=== PATIENT | male | born 1990 | race Caucasian/White ===

== ENCOUNTER 2016-02-29 12:05 | Emergency (ER) | payer MEDICARE, OTHER ==
[~2016-02-29] VITALS: Ht 180.3 cm; Wt 140.0 kg
[~2016-02-29 12:05] MED LIST: ALBU18HF INHALATION; AZIT250T94 PO; BENZ100C70 PO; GLIM4TAB55 PO; LISI2.5T59 PO; RTPRO5; SAME MEDS; denies new meds/allergies
[2016-02-29 12:11] VITALS: Ht 180.3 cm; Wt 140.0 kg
[2016-02-29] MEDS ORDERED: AMOX1TAB10 PO (14:39)
[2016-02-29] MEDS ORDERED: FLUT9.9S NASAL (14:39)
[2016-02-29] MEDS ORDERED: BENZ100C70 PO (14:39)
[2016-02-29] MEDS ORDERED: ACET325T33 PO (14:39)
[2016-02-29] MEDS ORDERED: ALBU18HF INHALATION (14:39)
[2016-02-29] MEDS ORDERED: BENZ1LOZ57 MM (14:39)
--- NOTE | 2016-02-29 14:51 | ERD ---
ER Documentation Chief Complaint Date/Time DATE: 02/29/16 TIME: 14:42 Chief Complaint flu symptoms with cough and congestion HPI The patient is a 25-year-old male with past medical history of obstructive sleep apnea, HTN, and asthma here with 2 days of itchy nose, mildly productive cough of green sputum, body aches, and wheezing. He denies difficulty breathing, shortness of breath, chest pain, fever, chills, nausea, vomiting, diarrhea, or any other symptoms or concerns at this time. He has tried Tylenol at home for body aches with some relief. ROS All systems reviewed and are negative except as per history of present illness. Medications Home Meds Active Scripts Fluticasone Propionate (Flonase Allergy Relief) 9.9 Ml [place].susp, 1 SPRAY NASAL DAILY, #1 BOTTLE TO EACH NOSTRIL Prov:ALYSHA BRAXTON, KATRINA 02/29/16 Acetaminophen* (Tylenol*) 325 Mg Tablet, 2 TAB PO Q6 Y for PAIN AND OR ELEVATED TEMP, #20 TAB Prov:ALYSHA BRAXTON NP 02/29/16 Benzonatate* (Tessalon Perle*) 100 Mg Capsule, 100 MG PO Q8H Y for COUGH for 7 Days, CAP Prov:ALYSHA BRAXTON NP 02/29/16 Benzocaine/Menthol (Chloraseptic Sore Throat Lozng) 1 Each Lozenge, 1 EACH MM 2 HOURS AFTER MEALS for 5 Days, LOZENGE Prov:ALYSHA BRAXTON NP 02/29/16 Albuterol Sulfate* (Ventolin HFA*) 18 Gm Hfa.aer.ad, 2 PUFF INHALATION Q6H, #1 INHALER Prov:ALYSHA BRAXTON NP 02/29/16 Amoxicillin/Potassium Clav (Amox-Clav 875-125 mg Tablet) 875-125 mg Tab, 1 TAB PO BID for 7 Days, #14 TAB Prov:ALYSHA BRAXTON NP 02/29/16 Benzonatate* (Tessalon Perle*) 100 Mg Capsule, 100 MG PO Q8H Y for COUGH, #30 CAP Prov:LONDON BARRAZA MD 12/14/15 Albuterol Sulfate* (Ventolin HFA*) 18 Gm Hfa.aer.ad, 2 PUFF INHALATION Q4H, #1 INHALER Prov:LONDON BARRAZA MD 12/14/15 Azithromycin* (Zithromax*) 250 Mg Tablet, 250 MG PO .EDY DIRECTED, #6 TAB TAKE 500 MG (2 TABS) THE FIRST DAY THEN 250 MG (1 TAB) DAYS 2-5 Prov:LONDON BARRAZA MD 12/14/15 Reported Medications [denies new meds/allergies] No Conflict Check 12/08/12 [Same Meds] No Conflict Check 01/30/12 Glimepiride* (Amaryl*) 4 Mg Tablet, 4 MG PO BID 04/13/11 Lisinopril* (Lisinopril*) 2.5 Mg Tablet, 20 MG PO DAILY, 0 Refills 11/04/09 Albuterol Sulfate* (Proventil* Neb) 0.5 Ml Nebu 11/04/09 Allergies Allergies: Coded Allergies: No Known Allergy (Unverified , 12/14/15) PMhx/Soc History of Surgery: Yes (tonsillectomy) Anesthesia Reaction: No Hx Neurological Disorder: No Hx Respiratory Disorders: No Hx Cardiac Disorders: Yes (htn) Hx Psychiatric Problems: Yes (anxiety) Hx Miscellaneous Medical Probl: No Hx Alcohol Use: Yes Hx Substance Use: No Hx Tobacco Use: Yes (5) Smoking Status: Current every day smoker Physical Exam Vitals Vital Signs Date Time Temp Pulse Resp B/P Pulse Ox O2 Delivery O2 Flow Rate FiO2 02/29/16 12:11 97.8 86 20 165/86 100 Physical Exam INITIAL VITAL SIGNS: Reviewed by me, afebrile, no tachycardia, oximetry 100% on room air, no tachypnea GENERAL: Alert. Well developed and well nourished. No acute distress. Nontoxic -appearing. HEAD: Head is normocephalic. Atraumatic. Right ethmoid sinus tenderness to palpation. EYES: EOMI. PERRL. No scleral icterus. No conjunctival injection. No clear or purulent drainage. ENT: External ears, nose, and mouth normal. Ear canals clear and without erythema or purulence. Tympanic membranes normal, positive light reflex, no erythema, no bulging, no effusion. Nares patent and without rhinorrhea. Oropharynx is clear and without erythema or exudates. Tonsils are +2 and without erythema or exudates. Uvula midline. Airway patent. Moist mucous membranes. NECK: Supple. Full range of motion. Trachea midline. No meningismus. No lymphadenopathy. RESPIRATORY: No tachypnea. Clear to auscultation bilaterally. No wheezing, rales , or rhonchi. CV: Regular rate and rhythm. No murmurs, rubs, or gallops ABDOMEN: Soft, non-distended, non-tender. Bowel sounds normal in all quadrants. BACK: No CVA tenderness. Full ROM. EXTREMITIES: No obvious deformity. No clubbing or cyanosis. No edema. SKIN: Warm and dry. No diaphoresis. No obvious rashes or lesions. NEUROLOGIC: Alert and oriented x 3. Appropriate. Face is symmetric. Speech is normal. Moves all extremities equally. Procedures/MDM Nursing Notes Reviewed Previous Medical Records requested via [employer]. EMERGENCY DEPARTMENT COURSE / MEDICAL DECISION MAKING: The patient comes to the ED secondary to itchy nose, mildly productive cough of green sputum, body aches, and wheezing 2 days. Differential diagnosis upon initial evaluation includes but is not limited to: Asthma exacerbation, pneumonia, sepsis, meningitis, sinusitis, allergies, and others. Final impression: Sinusitis URI Based on patient's history of present illness and physical examination the decision was made to discharge. There is no evidence of life threatening injuries or illnesses at this time. At this time, the patient's history of present illness and physical exam are most consistent with right ethmoid sinusitis and URI, likely viral. He had tenderness of the right ethmoid sinus to palpation. He had increased headache and sinus pressure when he bent forward at the waist and hung his head down. At this time I believe he is an appropriate candidate for outpatient management and follow-up as he is afebrile , with a benign physical exam, clear lung sounds, no wheezes, no rhonchi, no stridor, oximetry 100% on room air, no tachypnea, and is generally well- appearing and nontoxic. Given this, I doubt any serious cause of infection including, but not limited to pneumonia, sepsis, or meningitis. There were no wheezes on physical exam and the patient did not have any shortness of breath or difficulty breathing. Given this I have a low suspicion for an asthma exacerbation at this time. The patient will be prescribed Ventolin for home, as he states that he has run out of this medication. On re-examination, patient resting in no distress, stable vital signs, reports feeling safe for discharge with outpatient follow up with PMD in 2-3 days. Patient given return precautions. Patient verbalized understanding and agreed to return precautions. All of his questions and concerns were addressed prior to discharge. He was instructed to get plenty of fluids and plenty of rest. He agrees with the plan of care. Patient's blood pressure was elevated but appears stable without evidence of hypertensive emergency, end organ damage, chest pain or shortness of breath. The patient was counseled about the risks of untreated hypertension and urged to pursue outpatient monitoring and therapy in 2-3 days with their primary care physician. The patient is on hypertensive medications, and did not take them this morning as he was in a [place] to come here. He states that he usually takes his medications as prescribed. He has outpatient follow-up for hypertension management. Prescriptions Augmentin Ventolin Chloraseptic lozenges Tessalon Perles Tylenol Flonase Departure Diagnosis: Primary Impression: Sinusitis, acute ethmoidal Recurrence: non-recurrent Qualified Code: J01.20 - Acute non-recurrent ethmoidal sinusitis Additional Impression: Upper respiratory infection URI type: unspecified viral URI Qualified Code: J06.9 - Viral upper respiratory tract infection Condition: Stable Patient Instructions: Sinusitis, Abx Tx Referrals: your doctor Additional Instructions: Call your primary care doctor TOMORROW for an appointment during the next 2-3 days. See the doctor sooner or return here if your condition worsens before your appointment time. ALYSHA BRAXTON NP Feb 29, 2016 14:51
== END 2016-02-29 15:12 | disposition home or self-care (01) ==
LOC: FTE 12:05
DX: J01.20 Acute ethmoidal sinusitis, unspecified (principal); J06.9 Acute upper respiratory infection, unspecified; I10 Essential (primary) hypertension; F17.210 Nicotine dependence, cigarettes, uncomplicated; J45.909 Unspecified asthma, uncomplicated; E11.9 Type 2 diabetes mellitus without complications; Z79.84 Long term (current) use of oral hypoglycemic drugs
CPT/HCPCS: 99284

== ENCOUNTER 2016-06-23 16:00 | Emergency (ER) | payer MEDICARE, OTHER ==
[~2016-06-23] VITALS: Ht 180.3 cm; Wt 140.5 kg
[~2016-06-23 16:00] MED LIST changes: +ACET325T33 PO; +AMOX1TAB10 PO; +BENZ1LOZ57 MM; +FLUT9.9S NASAL
[2016-06-23 16:04] VITALS: Ht 180.3 cm; Wt 140.5 kg
[2016-06-23] MEDS ORDERED: IBUPROFEN 600 MG TAB PO ONE (16:30)
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
--- NOTE | 2016-06-23 17:08 | RADRPT ---
PROCEDURE: XR Pelvis CLINICAL INDICATION: Left-sided pain TECHNIQUE: An AP radiograph was submitted. COMPARISON: None FINDINGS: Osseous structures: There is a asymmetrical lumbarization of S1 as well as a spina bifida occulta. The osseous elements otherwise appear intact. Joint spaces: The hip joints appear unremarkable. There is no distension of either joint capsule. the sacroiliac joints appear unremarkable without significant erosions or sclerosis. Soft tissues: A phlebolith is seen in the left pelvis. IMPRESSION: 1. Asymmetrical lumbarization of S1 with a spina bifida a occulta. 2. Otherwise, unremarkable AP pelvis. Physician Yoli Date Time Electronically viewed and signed by Physician Yoli on 06/23/2016 17:08 /
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
[2016-06-23] MEDS ORDERED: IBUP-1542 PO (17:29)
== END 2016-06-23 17:35 | disposition home or self-care (01) ==
LOC: FTE 16:00
DX: S39.012A Strain of muscle, fascia and tendon of lower back, initial encounter (principal); I10 Essential (primary) hypertension; F17.210 Nicotine dependence, cigarettes, uncomplicated; V89.2XXA Person injured in unspecified motor-vehicle accident, traffic, initial encounter
CPT/HCPCS: 72100; 72170

== ENCOUNTER 2016-11-29 14:10 | Emergency (ER) | payer MEDICARE, OTHER ==
[~2016-11-29] VITALS: Ht 180.3 cm; Wt 141.0 kg
[~2016-11-29 14:10] MED LIST changes: +IBUP-1542 PO
[2016-11-29 14:18] VITALS: Ht 180.3 cm; Wt 141.0 kg
[2016-11-29] MEDS ORDERED: AZIT250T94 PO (14:56)
[2016-11-29] MEDS ORDERED: IBUP800T25 PO (14:56)
--- NOTE | 2016-11-29 15:02 | ERD ---
ER Documentation Chief Complaint Chief Complaint SORE THROAT W/ CONGESTION X 2 DAYS HPI 26-year-old male presents with sore throat and cough that he has had for 2 days. He has not yet had a fever he states. No nausea or vomiting. He also has bilateral ear pain. He has tried uric-ire-tnkxopn medications but that does not help. Cough is dry and worse at night. ROS All systems reviewed and are negative except as per history of present illness. Medications Home Meds Active Scripts Ibuprofen* (Motrin*) 800 Mg Tab, 800 MG PO Q6, #30 TAB Prov:KIAN OLSEN PA-C 11/29/16 Azithromycin* (Zithromax*) 250 Mg Tablet, 250 MG PO .ZPACK DIRECTED, #6 TAB TAKE 500 MG (2 TABS) THE FIRST DAY THEN 250 MG (1 TAB) DAYS 2-5 Prov:KIAN OLSEN PA-C 11/29/16 Ibuprofen* (Motrin*) 600 Mg Tab, 600 MG PO Q6, #30 TAB Prov:ROSELYN SHAW PA-C 06/23/16 Fluticasone Propionate (Flonase Allergy Relief) 9.9 Ml [place].susp, 1 SPRAY NASAL DAILY, #1 BOTTLE TO EACH NOSTRIL Prov:ALYSHA BRAXTON NP 02/29/16 Acetaminophen* (Tylenol*) 325 Mg Tablet, 2 TAB PO Q6 Y for PAIN AND OR ELEVATED TEMP, #20 TAB Prov:ALYSHA BRAXTON, KATRINA 02/29/16 Benzonatate* (Tessalon Perle*) 100 Mg Capsule, 100 MG PO Q8H Y for COUGH for 7 Days, CAP Prov:ALYSHA BRAXTON NP 02/29/16 Benzocaine/Menthol (Chloraseptic Sore Throat Lozng) 1 Each Lozenge, 1 EACH MM 2 HOURS AFTER MEALS for 5 Days, LOZENGE Prov:ALYSHA BRAXTON NP 02/29/16 Albuterol Sulfate* (Ventolin HFA*) 18 Gm Hfa.aer.ad, 2 PUFF INHALATION Q6H, #1 INHALER Prov:ALYSHA BRAXTON, KATRINA 02/29/16 Amoxicillin/Potassium Clav (Amox-Clav 875-125 mg Tablet) 875-125 mg Tab, 1 TAB PO BID for 7 Days, #14 TAB Prov:ALYSHA BRAXTON, [employer] WORK[employer] 02/29/16 Benzonatate* (Tessalon Perle*) 100 Mg Capsule, 100 MG PO Q8H Y for COUGH, #30 CAP Prov:LONDON BARRAZA MD 12/14/15 Albuterol Sulfate* (Ventolin HFA*) 18 Gm Hfa.aer.ad, 2 PUFF INHALATION Q4H, #1 INHALER Prov:LONDON BARRAZA MD 12/14/15 Azithromycin* (Zithromax*) 250 Mg Tablet, 250 MG PO .ZPACK DIRECTED, #6 TAB TAKE 500 MG (2 TABS) THE FIRST DAY THEN 250 MG (1 TAB) DAYS 2-5 Prov:LONDON BARRAZA MD 12/14/15 Reported Medications [denies new meds/allergies] No Conflict Check 12/08/12 [Same Meds] No Conflict Check 01/30/12 Glimepiride* (Amaryl*) 4 Mg Tablet, 4 MG PO BID 04/13/11 Lisinopril* (Lisinopril*) 2.5 Mg Tablet, 20 MG PO DAILY, 0 Refills 11/04/09 Albuterol Sulfate* (Proventil* Neb) 0.5 Ml Nebu 11/04/09 Allergies Allergies: Coded Allergies: No Known Allergy (Unverified , 11/29/16) PMhx/Soc History of Surgery: Yes (tonsillectomy) Anesthesia Reaction: No Hx Neurological Disorder: No Hx Respiratory Disorders: No Hx Cardiac Disorders: Yes (htn) Hx Psychiatric Problems: Yes (anxiety) Hx Miscellaneous Medical Probl: No Hx Alcohol Use: Yes Hx Substance Use: No (marijuana) Hx Tobacco Use: Yes (5) Smoking Status: Former smoker FmHx Family History: No diabetes Physical Exam Vitals Vital Signs Date Time Temp Pulse Resp B/P Pulse Ox O2 Delivery O2 Flow Rate FiO2 11/29/16 14:18 98.7 83 18 176/87 98 Physical Exam INITIAL VITAL SIGNS: Reviewed by me GENERAL: Awake, alert and oriented x 4, well appearing, nontoxic, speaking in full sentences. No acute distress HEAD: Atraumatic NECK: Supple. No masses. Full range of motion. No meningismus. No midline tenderness. EYES: EOMI. PERRL. EAR: No tenderness over the mastoids bilaterally. No exudates in the canals. TMs nonerythematous. NOSE: Normal nose. THROAT: No tonilar erythema or edema. No exudates. Uvula midline. No kissing tonsils. RESPIRATORY: Clear to auscultation bilaterally. Symmetric chest wall rise. No wheezing or rales. No accessory muscle use. CV: Regular rate and rhythm. No murmurs, rubs, or gallops. ABDOMEN: Soft, non-distended. Nontender. Negative Irwin. Negative McBurneys point tenderness. No CVA tenderness bilaterally. No guarding. No rebound. Procedures/MDM Patient presents with URI versus bronchitis. Patient's blood pressure was elevated (>120/80) but appears stable without evidence of hypertension emergency or urgency. The patient was counseled about the risks of hypertension and urged to pursue outpatient monitoring and therapy within a week with their primary care physician. Discharge with improvement and azithromycin. Patient counseled regarding my diagnostic impression and care plan. Prior to discharge all questions answered. Pt agrees with treatment plan and understands strict return precautions. Pt is instructed to follow up with primary care provider within 24-48 hours. Precautionary instructions provided including instructions to return to the ER if not improving or for any worsening or changing symptoms or concerns. Departure Diagnosis: Primary Impression: Bronchitis Condition: Stable Patient Instructions: Bronchitis, Antiobiotic Treatment (Adult) Additional Instructions: Call your primary care doctor TOMORROW for an appointment during the next 1-2 days.See the doctor sooner or return here if your condition worsens before your appointment time. KIAN OLSEN PA-C Nov 29, 2016 15:02
== END 2016-11-29 15:04 | disposition home or self-care (01) ==
LOC: FTE 14:10
DX: J20.9 Acute bronchitis, unspecified (principal); I10 Essential (primary) hypertension; Z79.84 Long term (current) use of oral hypoglycemic drugs; Z87.891 Personal history of nicotine dependence
CPT/HCPCS: 99283

== ENCOUNTER 2016-12-03 10:48 | Emergency (ER) | payer MEDICARE, OTHER ==
[~2016-12-03] VITALS: Ht 180.3 cm; Wt 140.0 kg
[~2016-12-03 10:48] MED LIST changes: +IBUP800T25 PO
[2016-12-03 10:51] VITALS: Ht 180.3 cm; Wt 140.0 kg
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
[2016-12-03] MEDS ORDERED: CYCL-319 PO (12:11)
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
== END 2016-12-03 12:33 | disposition home or self-care (01) ==
LOC: FTE 10:48
DX: M62.830 Muscle spasm of back (principal); I10 Essential (primary) hypertension; F17.210 Nicotine dependence, cigarettes, uncomplicated; Z79.84 Long term (current) use of oral hypoglycemic drugs
CPT/HCPCS: 72100

== ENCOUNTER 2017-05-28 22:47 | Emergency (ER) | END 2017-05-29 01:40 | disposition home or self-care (01) ==

== ENCOUNTER 2017-08-19 18:36 | Emergency (ER) | END 2017-08-19 21:10 | disposition home or self-care (01) ==

== ENCOUNTER 2018-01-02 11:44 | Emergency (ER) | END 2018-01-02 18:30 | disposition home or self-care (01) ==

== ENCOUNTER 2018-05-02 20:42 | Emergency (ER) | payer MEDICARE, OTHER ==
[~2018-05-02] VITALS: Ht 180.3 cm; Wt 133.0 kg
[~2018-05-02 20:42] MED LIST changes: -ACET325T33 PO; -ALBU18HF INHALATION; -AMOX1TAB10 PO; -AZIT250T94 PO; -BENZ100C70 PO; -BENZ1LOZ57 MM; -FLUT9.9S NASAL; -GLIM4TAB55 PO; -IBUP-1542 PO; -IBUP800T25 PO; -LISI2.5T59 PO; +LORA-441 PO; -RTPRO5; -SAME MEDS; -denies new meds/allergies
[2018-05-02 21:00] VITALS: Ht 180.3 cm; Wt 133.0 kg
--- NOTE | 2018-05-03 03:10 | ERD ---
ER Documentation Chief Complaint Chief Complaint fever/cough/runny nose x 3 days HPI This is a 27-year-old male presents emergency department with complaints of sinus congestion, fever, cough for about 3 days. Denies headache, head injury, loss of consciousness, dizziness, neck pain, neck stiffness, throat pain, difficulty swallowing, difficulty breathing lying flat, shoulder pain, chest pain, back pain, abdominal pain, nausea, vomiting, co nstipation, diarrhea, urinary symptoms, loss of bowel and bladder control, trauma, injury, falls, difficulty walking due to pain, numbness or tingling sensation, calf pain, recent travel, recent major surgery in the last 3 weeks, calf pain, recent long travel, recent exposure to any illness, recent antibiotic use in the last 3 months, chills, seizures. Past medical history: Surgical history: Tonsillectomy. Social: Denies smoking, use of alcoholic beverages, use of illegal drugs. ROS All systems reviewed and are negative except as per history of present illness. Medications Home Meds Active Scripts Mometasone Furoate* (Nasonex*) 50 Mcg/[place] - 17 Gm [place].pump, 1 SPRAY NASAL DAILY, #1 BOTTLE TO EACH NOSTRIL Prov:PASILAPATRICIA MARTIN Darnell 05/03/18 Benzonatate* (Tessalon Perle*) 100 Mg Capsule, 100 MG PO Q8H PRN for COUGH, #15 CAP Prov:PASILABANPATRICIA Darnell 05/03/18 Oseltamivir Phosphate* (Tamiflu*) 75 Mg Capsule, 75 MG PO BID for 5 Days, CAP Prov:PASILAPATRICIA MARTIN Darnell 05/03/18 Loratadine* (Loratadine*) 10 Mg Tablet, 10 MG PO DAILY, #30 TAB Prov:PASILAPATRICIA MARTIN Darnell 05/03/18 Ibuprofen* (Motrin*) 800 Mg Tab, 800 MG PO Q6H PRN for PAIN AND OR ELEVATED TEMP, #30 TAB Prov:PASILABANPATRICIA Darnell 05/03/18 Amoxicillin/Potassium Clav (Amox-Clav 875-125 mg Tablet) 875-125 mg Tab, 1 TAB PO BID for 10 Days, #20 TAB Prov:PASILAPATRICIA MARTIN Darnell 05/03/18 Lorazepam* (Ativan*) 0.5 Mg Tablet, 0.5 MG PO Q8H PRN for ANXIETY, #8 TAB Prov:ALEX,NETTA B. MD 01/02/18 Allergies Allergies: Coded Allergies: No Known Allergy (Unverified , 01/02/18) PMhx/Soc History of Surgery: Yes (tonsillectomy) Anesthesia Reaction: No Hx Neurological Disorder: No Hx Respiratory Disorders: No Hx Cardiac Disorders: Yes (HTN) Hx Psychiatric Problems: Yes (anxiety) Hx Miscellaneous Medical Probl: No Hx Alcohol Use: No Hx Substance Use: No Hx Tobacco Use: No Physical Exam Vitals Physical Exam Const: No acute distress Head: Atraumatic Eyes: Normal Conjunctiva ENT: Normal External Ears, Nose and Mouth. Right ear: TM is erythematous. No lesions no discharge. No hearing loss. No mastoid tenderness. Left ear: TMs are erythematous. No bleeding. No discharge. No hearing loss. No mastoid tenderness. Nose: There is frontal/ethmoid/maxillary sinus tenderness palpation. Throat: Uvula is midline and nondisplaced. Tolerating secretions. Patent airway. Neck: Full range of motion. No meningismus. No nuchal rigidity with no signs of meningeal irritation. Resp: Clear to auscultation bilaterally. No accessory muscle use in breathing. Cardio: Regular rate and rhythm, no murmurs Abd: Soft, non tender, non distended. Normal bowel sounds Skin: No petechiae or rashes Back: No midline or flank tenderness Ext: No cyanosis, or edema Neur: Awake and alert. No neurological deficit. Psych: Normal Mood and Affect Results 24 hrs Current Medications Medications Dose Sig/Nirmala Start Time Status Last (Trade) Ordered Route PRN Stop Time Admin Dose Reason Admin Ibuprofen 800 mg ONCE ONCE 05/03/18 DC 05/03/18 (Motrin) PO 03:30 04:10 05/03/18 03:31 10 ml ONCE ONCE 05/03/18 DC Guaifenesin/ PO 03:30 Dextromethorp 05/03/18 03:59 noble (Robitussin Dm Liquid Cup) Guaifenesin 200 mg ONCE ONCE 05/03/18 DC (Robitussin PO 04:00 Liquid Cup) 05/03/18 04:03 10 ml ONCE ONCE 05/03/18 DC 05/03/18 Guaifenesin/ PO 04:30 04:11 Dextromethorp 05/03/18 04:31 noble (Robitussin Dm Liquid Cup) Procedures/MDM Offered diagnostic tests but patient strongly refused. Stated that he wants to go home and does not want to wait. Diagnostic tests: Clinical exam. Treatment: Motrin. Robafen. Re-evaluation: Denies pain. Not in distress. No neurological deficits. Steady gait. Stated that he feels much better at this time and that he is ready to go home. Differential diagnosis I have low suspicion for sepsis, meningitis, cystitis, peritonsillar abscess, airway obstruction, pneumonia, bronchospasm. Final diagnosis: Otitis media. Sinusitis. Cough. Influenza-like symptoms. Prescription: Augmentin. Tamiflu. Motrin. Tessalon Perles. Claritin. Follow-up with PCP in the next 24-48 hours. Follow-up with your ENT in the next 24-48 hours. Come back here in the emergency department for any new symptoms or any worsening symptoms. All questions and concerns were answered. Patient and family members verbalized understanding and agreed with plan of care. Hemodynamically stable on discharge. Departure Diagnosis: Primary Impression: Influenza-like symptoms Additional Impressions: Sinusitis, acute ethmoidal Otitis media Condition: Stable Additional Instructions: Follow-up with PCP in the next 24-48 hours. Follow-up with your ENT in the next 24-48 hours. Come back here in the emergency department for any new symptoms or any worsening symptoms. PATRICIA ALVARADO May 03, 2018 03:10
[2018-05-03] MEDS ORDERED: IBUP800T48 PO (03:12)
[2018-05-03] MEDS ORDERED: AMOX1TAB10 PO (03:12)
[2018-05-03] MEDS ORDERED: OSEL75CA23 PO (03:13)
[2018-05-03] MEDS ORDERED: LORA10TA3 PO (03:13)
[2018-05-03] MEDS ORDERED: NASO17 NASAL (03:13)
[2018-05-03] MEDS ORDERED: BENZ-6 PO (03:13)
[2018-05-03] MEDS ORDERED: IBUPROFEN 800 MG TAB PO ONE (03:30)
[2018-05-03] MEDS ORDERED: GUAIFENESIN/DM 5ML CUP PO ONE ×2 (03:30→04:30)
[2018-05-03] MEDS ORDERED: GUAIFENESIN 20 MG/ML 5ML CUP PO ONE (04:00)
[2018-05-03 04:13] VITALS: BP 142/76; PULSE 92; RESP 17
== END 2018-05-03 04:13 | disposition home or self-care (01) ==
LOC: FTE 20:42
DX: J01.20 Acute ethmoidal sinusitis, unspecified (principal); I10 Essential (primary) hypertension; H66.93 Otitis media, unspecified, bilateral
CPT/HCPCS: 99283